=== PATIENT | female | born 1985 | race Caucasian/White ===

== ENCOUNTER 2018-01-13 09:14 | Emergency (ER) | payer OTHER ==
[~2018-01-13] VITALS: Ht 160 cm; Wt 44.0 kg
[2018-01-13 09:15] VITALS: BP 119/79
[2018-01-13] MEDS ORDERED: ERYT1OIN6 LEFTEYE (09:30)
== END 2018-01-13 09:39 | disposition home or self-care (01) ==
LOC: ER 09:15
DX: H10.9 Unspecified conjunctivitis (principal); Z88.2 Allergy status to sulfonamides; Z88.0 Allergy status to penicillin
CPT/HCPCS: 99283